=== PATIENT | female | born 1985 | race Caucasian/White ===

== ENCOUNTER → 2017-04-16 | Outpatient (CLI) | payer BC ==
[2016-07-04 11:20] VITALS: BP 97/59
--- NOTE | 2017-04-16 13:18 | RAD ---
HISTORY: Left lower quadrant pain Study: Acute abdominal series Comparison: None Findings: The cardiac silhouette is normal in size. The lungs are clear without focal consolidation. No pleura l effusion or pneumothorax is identified. Osseous thorax is unremarkable. There is a large amount of stool throughout the colon. The bowel gas pattern is otherwise nonobstruc tive. No convincing pneumatosis or free intraperitoneal air is identified. No pathologic calcificati ons are seen. Regional skeleton is intact. IMPRESSION: 1. No acute cardiopulmonary disease. 2. Findings suggestive for constipation. Otherwise, no acute abdominal abnormality. Reported By:
== END ==
LOC: RAD 11:33
PROVIDERS: ATTEND Obstetrics & Gynecology Obstetrics
DX: R10.84 Generalized abdominal pain (principal)
CPT/HCPCS: 74022